=== PATIENT | female | born 1945 | race Caucasian/White ===

== ENCOUNTER 2021-09-27 09:16 | Emergency (ER) | payer MEDICARE, SELFPAY ==
[2021-09-27 09:26] VITALS: BP 152/84; PULSE 90; RESP 20; TEMP 37.4; O2SAT 100
--- NOTE | 2021-09-27 09:35 | ED.SKABFB ---
HPI - Skin/Abscess/Foreign Bdy General Chief complaint: Skin/Abscess/Foreign Body Stated complaint: Rash on face Time Seen by Provider: 09/27/21 09:35 Source: patient Mode of arrival: ambulatory Limitations: no limitations History of Present Illness HPI narrative: 76-year-old female presented for complaint of rash to the left forehead onset 2 days ago. Endorses painful lesions to the left upper hairline and around the upper cheekbone to the pres[place]eterian. Left eye has mild upper eyelid swelling and tearing without pain or vision loss. No other locations of rash. Has applied cold compresses to the site. She is taking Tylenol as needed for pain. She has had the shingles vaccine complaint: rash Related Data Home Medications Medication Instructions Recorded Confirmed Ozempic 09/27/21 Tresiba FlexTouch U-100 09/27/21 dapagliflozin [Farxiga] mg 09/27/21 labetalol 09/27/21 levothyroxine [Euthyrox] 09/27/21 rosuvastatin mg 09/27/21 Allergies Allergy/AdvReac Type Severity Reaction Status Date / Time No Known Allergies Allergy Verified 09/27/21 09:49 Review of Systems Review of Systems: CONSTITUTIONAL: Denies body aches, fever, chills, or sweats. EYES: Denies visual changes, redness, or discharge. ENT: Denies rhinorrhea, congestion, sore throat, or otalgia. CARDIOVASCULAR: Denies chest pain, palpitations, or edema. RESPIRATORY: Denies cough or dyspnea. GASTROINTESTINAL: Denies abdominal pain, nausea, vomiting, or diarrhea. GENITOURINARY: Denies dysuria or hematuria. SKIN: endorses rash MUSCULOSKELETAL: Denies back pain, joint pain, or myalgia. NEUROLOGIC: Denies headache, numbness, tingling, or weakness. PSYCH: Denies depression or anxiety. PMFSH Comments At time of signature, I have reviewed and agree with nursing past medical, surgical, social and family history unless otherwise noted. Please see nursing chart for further information. There is no relevant family history pertinent to the presenting complaint Exam Narrative: GENERAL: Well-appearing no acute distress. HEAD: Normocephalic, atraumatic. EYES: PERRLA, conjunctivae clear, and EOMI. Left eye has clear tearful drainage, mild upper eyelid swelling. Denies vision changes. No lesions to the left eye. ENT: Mucous membranes moist. Oropharynx without edema, erythema or lesions. NECK: Supple. No lymphadenopathy CHEST: Clear to auscultation. No respiratory distress. HEART: Regular rate and rhythm. SKIN: Warm, dry. Patches of painful vesicular lesions to the left upper hairline, forehead, and left lateral bridge of the nose. No active drainage. left forehead appears reddened. NEURO: Alert and oriented x3. PSYCH: Normal mood and affect Course Course Emergency Course: Patient is aware of diagnosis, understands and agrees to treatment plan. Anticipatory guidance given. Patient agrees to follow-up as directed and is aware of reasons to seek care at the emergency department. Portions of this record may have been created with voice recognition software Level of Care: Express Care Visit Vital Signs Vital signs: Vital Signs Temperature 99.4 F 09/27/21 09:26 Pulse Rate 90 09/27/21 09:26 Respiratory Rate 20 09/27/21 09:26 Blood Pressure 152/84 H 09/27/21 09:26 Pulse Oximetry 100 09/27/21 09:26 Temperature 99.4 F 09/27/21 09:26 Pulse Rate 90 09/27/21 09:26 Respiratory Rate 20 09/27/21 09:26 Blood Pressure 152/84 H 09/27/21 09:26 Pulse Oximetry 100 09/27/21 09:26 Reviewed MDM - Skin/Abscess/Foreign Bdy MDM Narrative Medical decision making narrative: Patient looks well, nontoxic, no neurologic signs or symptoms; no headache, photophobia or vision loss; afebrile; appropriate for initial outpatient treatment; discussed the importance of eye doctor follow-up, patient agrees. She is aware of the risk of vision loss due to the location of the lesions. v/u. Card provided for [facility]. She also has an eye doc. Discu
== END 2021-09-27 09:58 | disposition home or self-care (01) ==
PROVIDERS: Emergency Provider Nurse Practitioner Family; PCP Internal Medicine
DX: B02.9 Zoster without complications (principal)
CPT/HCPCS: 99213; G0463

== ENCOUNTER 2023-05-21 10:32 | Emergency (ER) | payer MEDICARE, SELFPAY ==
--- NOTE | 2023-05-21 10:42 | ED.GENADULT ---
HPI - General Adult General Chief complaint: Upper Respiratory Infection Stated complaint: Vomiting/Weakness/Cough Source: patient, RN notes reviewed and old records reviewed Mode of arrival: ambulatory Limitations: no limitations History of Present Illness HPI narrative: 70-year-old female presents to [facility] with complaint of cough, congestion, fatigue, myalgia, nausea, vomiting this started 3-4 days ago. Patient states taking Mucinex that has helped. Patient states called her primary care physician who told her to come here for dehydration evaluation . patient denies chest pain, dizziness, weakness, shortness of breath. MD complaint: , congestion Onset (ago): day(s) (3-4) Related Data Home Medications Medication Instructions Recorded Confirmed Ozempic 09/27/21 Tresiba FlexTouch U-100 09/27/21 dapagliflozin propanediol 10 mg mg 09/27/21 tablet (Farxiga) labetalol 100 mg tablet 09/27/21 levothyroxine 75 mcg tablet 09/27/21 (Euthyrox) rosuvastatin 40 mg tablet mg 09/27/21 acarbose 50 mg tablet mg 05/21/23 famotidine 20 mg tablet mg 05/21/23 meclizine 12.5 mg tablet mg 05/21/23 Allergies Allergy/AdvReac Type Severity Reaction Status Date / Time No Known Allergies Allergy Verified 09/27/21 09:49 Review of Systems Constitutional: Constitutional: Reports no additional constitutional complaints, Reports body ache(s), Denies chills, Reports fatigue, Denies fever(s) and Denies headache(s) Eyes: Eyes: Reports no additional eye complaints and Denies blurry vision ENT: Reports system reviewed and no additional complaints, except as documented, Denies vertigo, Denies dizziness, Denies ear discharge, Denies otalgia, Denies facial pain, Denies headache(s), Reports nasal congestion, Denies nasal discharge, Denies sinus pain, Denies sinus pressure and Denies sore throat Cardiovascular: Cardiovascular: Reports no additional cardiovascular complaints, Denies chest pain, Denies chest pain at rest, Denies rapid heart rate and Denies dyspnea Respiratory: Respiratory: Reports no additional respiratory complaints, Denies chest congestion, Reports cough, Denies pain on inspiration, Denies pain with cough and Denies dyspnea Gastrointestinal: Gastrointestinal: Denies abdominal pain, Denies diarrhea, Reports nausea and Reports vomiting Integumentary/Breasts: Skin/Breast: Denies rash Neurologic: Reports system reviewed and no additional complaints, except as documented, Denies vertigo, Denies dizziness and Denies headache(s) Endocrine: Endocrine: Denies fatigue PMFSH Comments At the time of my signature, I reviewed and agree with the nursing past medical, surgical, social, and family history. There is no relevant family history pertinent to the patient complaint. Exam Const: General: cooperative, healthy appearing, no acute distress and well nourished Nutritional Appearance: well nourished Orientation/consciousness: patient oriented x3 Limitations: no limitations HENMT: Head: normal to inspection and normocephalic Ears: external ears normal, TM's normal bilaterally, mastoids normal and Abnormal EAC present Face/Nose/Sinus: normal facial exam Face and sinus: normal facial exam Mouth: Yes Normal oral and palatal mucosa present, Yes oropharynx normal and Yes moist mucous membranes Throat: posterior oropharynx normal, tonsils normal, uvula midline and no uvular edema Eyes: General: appearance normal, both eyes and all related structures Sclera: sclerae normal Pupils: Equal, round and reactive pupils present Resp: Effort & Inspection: normal respiratory effort, able to speak in complete sentences, no audible wheezes, no cough, no respiratory distress and no retractions Auscultation: clear to auscultation bilaterally, no crackles, no rales, no rhonchi and no wheezes Cardio: Rate: regular rate Rhythm: regular rhythm GI: Inspection: normal to inspection GI Palp: No abdominal tenderness, Yes Soft to palpation
[2023-05-21 10:43] VITALS: BP 120/75; PULSE 107; RESP 20; TEMP 36.7; O2SAT 100
== END 2023-05-21 11:20 | disposition home or self-care (01) ==
PROVIDERS: Emergency Provider Registered Nurse; PCP Internal Medicine
DX: B34.9 Viral infection, unspecified (principal); Z20.822 Contact with and (suspected) exposure to COVID-19
CPT/HCPCS: 87426; 87804; 99213; C9803; G0463